=== PATIENT | female | born 1995 | race Two or more races ===

== ENCOUNTER 2024-02-11 13:41 | Observation (INO) | payer MEDICAID, SELFPAY ==
[2024-02-11 13:50] VITALS: BP 138/77; PULSE 92
[2024-02-11 13:59] VITALS: BP 138/77; PULSE 99; RESP 16; TEMP 36.7; BMI 30.5
[2024-02-11 14:06] VITALS: BP 132/73; PULSE 93
[2024-02-11 14:22] VITALS: BP 131/76; PULSE 96
[2024-02-11 14:37] VITALS: BP 123/68; PULSE 90
[2024-02-11 14:52] VITALS: BP 134/80; PULSE 87
== END 2024-02-11 15:15 | disposition home or self-care (01) ==
PROVIDERS: Admitting Provider Obstetrics & Gynecology; Visit Provider Obstetrics & Gynecology
DX: Z34.83 Encounter for supervision of other normal pregnancy, third trimester (principal); Z3A.38 38 weeks gestation of pregnancy
CPT/HCPCS: 59025; 59899

== ENCOUNTER 2024-02-15 10:07 | Outpatient (CLI) | payer MEDICAID, SELFPAY ==
[2024-02-15 10:14] VITALS: BP 140/82; PULSE 78; RESP 16; TEMP 36.9; O2SAT 98
[2024-02-15 10:24] VITALS: BP 137/80; PULSE 88
[2024-02-15 10:31] VITALS: TEMP 36.9; BMI 30.4
[2024-02-15 10:36] VITALS: BP 133/72; PULSE 90
[2024-02-15 10:45] VITALS: BP 130/72; PULSE 84
== END 2024-02-15 10:50 | disposition home or self-care (01) ==
LOC: S4S1 10:08 → S4SX 10:09
PROVIDERS: Referring Provider Obstetrics & Gynecology; Visit Provider Obstetrics & Gynecology
DX: Z34.83 Encounter for supervision of other normal pregnancy, third trimester (principal); Z36.89 Encounter for other specified antenatal screening; Z3A.38 38 weeks gestation of pregnancy
CPT/HCPCS: 59025

== ENCOUNTER 2024-02-17 13:58 | Outpatient (RCR) | payer MEDICAID, SELFPAY ==
--- NOTE | 2024-01-14 14:27 | XR_ITS ---
Examination: Biophysical profile, ultrasound Date and time of exam: January 14, 2024 at 1446 hours INDICATIONS: NST labor evaluation low amniotic fluid history Technique: Multiple transabdominal sonographic images of the pelvis abdomen obtained. Attention is directed to the breathing movement, gross body movement, amniotic fluid volume and tone. Findings: Amniotic fluid index 9.9 cm Total biophysical profile is 8 of 8. breathing movement is 2. Gross body movement is 2. tone is 2. Qualitative amniotic fluid volume is 2 Impression: Biophysical profile is 8 of 8.
[2024-01-14 15:20] VITALS: BP 129/73; PULSE 92; RESP 16; TEMP 37
--- NOTE | 2024-01-20 14:14 | XR_ITS ---
Examination: Biophysical profile, ultrasound Date and time of exam: January 20, 2024 1422 hours INDICATIONS: History low amniotic fluid Technique: Multiple transabdominal sonographic images of the pelvis abdomen obtained. Attention is directed to the breathing movement, gross body movement, amniotic fluid volume and tone. Findings: Amniotic fluid index 8.9 cm Total biophysical profile is 8 of 8. breathing movement is 2. Gross body movement is 2. tone is 2. Qualitative amniotic fluid volume is 2 Impression: Biophysical profile is 8 of 8.
[2024-01-20 14:52] VITALS: BP 124/75; PULSE 102; RESP 16; TEMP 37
--- NOTE | 2024-01-27 14:12 | XR_ITS ---
Examination: Biophysical profile, ultrasound Date and time of exam: January 27, 2024 1426 hours INDICATIONS: NST, labor evaluation, history low amniotic fluid index 8.9 cm on January 20, 2024 Technique: Multiple transabdominal sonographic images of the pelvis abdomen obtained. Attention is directed to the breathing movement, gross body movement, amniotic fluid volume and tone. Findings: Amniotic fluid index 13.4 cm Total biophysical profile is 8 of 8. breathing movement is 2. Gross body movement is 2. tone is 2. Qualitative amniotic fluid volume is 2 Impression: Biophysical profile is 8 of 8.
[2024-01-27 14:59] VITALS: BP 122/80; PULSE 89; RESP 16; TEMP 36.6
--- NOTE | 2024-02-03 14:59 | XR_ITS ---
Examination: Biophysical profile, ultrasound Date and time of exam: February 03, 2024 1433 hours INDICATIONS: NST, labor evaluation, history low amniotic fluid 5:00 AM Technique: Multiple transabdominal sonographic images of the pelvis abdomen obtained. Attention is directed to the breathing movement, gross body movement, amniotic fluid volume and tone. Findings: Amniotic fluid index 14.1 cm Total biophysical profile is 8 of 8. breathing movement is 2. Gross body movement is 2. tone is 2. Qualitative amniotic fluid volume is 2 Impression: Biophysical profile is 8 of 8.
[2024-02-03 15:00] VITALS: BP 127/82; PULSE 72; RESP 16; TEMP 36.6
[2024-02-10] VITALS (11 sets, daily range): BP systolic 118–145; BP diastolic 63–85; PULSE 101; RESP 18; TEMP 36.6
--- NOTE | 2024-02-10 14:08 | XR_ITS ---
Examination: Biophysical profile, ultrasound Date and time of exam: February 10, 2024 1416 hours INDICATIONS: Clear vaginal discharge beginning several days ago, history low KELSEA Technique: Multiple transabdominal sonographic images of the pelvis abdomen obtained. Attention is directed to the breathing movement, gross body movement, amniotic fluid volume and tone. Findings: Amniotic fluid index 12.8 cm Total biophysical profile is 8 of 8. breathing movement is 2. Gross body movement is 2. tone is 2. Qualitative amniotic fluid volume is 2 Impression: Biophysical profile is 8 of 8.
[2024-02-10 16:13] LABS: Collection Type, Urine Clean Catch
[2024-02-10 16:19] LABS: Basophils % (Auto) 0 % (0-2.5); Eosinophils % (Auto) 0 % (0-10); Hematocrit 35.2 % (36.0-46.0); Hemoglobin 11.7 g/dL (12.0-16.0); Immature Granulocytes % (Auto) 0 % (0-0); Immature Granulocytes Auto 0.03 Thou/mm3 (0.00-0.00); Lymphocytes # (Auto) 1.3 Thou/mm3 (1.0-4.8); Lymphocytes % (Auto) 18 % (10-50); Mean Corpuscular HGB Conc 33.2 g/dl (31.0-37.0); Mean Corpuscular Hemoglobin 30.2 pg (25.0-35.0); Mean Corpuscular Volume 91 fL (80-100); Monocytes # (Auto) 0.5 Thou/mm3 (0.0-0.8); Monocytes % (Auto) 8 % (0-12); Neutrophils # (Auto) 5.1 Thou/mm3 (1.8-7.7); Neutrophils % (Auto) 73 % (37-80); Nucleated Red Blood Cell % 0 /100 WBC (0); Platelet Count 199 Thou/mm3 (140-440); RDW Standard Deviation 46.4 fL (36.4-46.3); Red Blood Count 3.88 Miln/mm3 (4.00-5.20); White Blood Count 6.9 Thou/mm3 (3.6-11.0)
[2024-02-10 16:35] LABS: INR 0.9 (0.9-1.3); Partial Thromboplastin Time 25.3 Seconds (22.0-36.0); Prothrombin Time 10.3 Seconds (9.0-12.2)
[2024-02-10 16:38] LABS: Bilirubin,Urine Negative (Negative); Blood,Urine Negative (Negative); Clarity,Urine Clear (Clear/Hazy); Color,Urine Lt-Yellow (Lt Yel-Yel); Glucose, Urine Negative (Negative); Ketones,Urine Negative (Negative); Leukocyte Esterase,Urine Negative (Negative); Nitrite,Urine Negative (Negative); PH,Urine 6.5 (5.0-7.0); Protein,Urine Trace (Neg - Trace); RBC,Urine < 1 /hpf (0-3); Specific Gravity,Urine 1.017 (1.001-1.035); Squamous Epithelial Cell,Urine 2 /hpf (0-5); Urobilinogen,Urine Negative mg/dL (0.0-1.0); WBC,Urine < 1 /hpf (0-5)
[2024-02-10 16:43] LABS: Alanine Aminotransferase 17 U/L (10-49); Albumin, Serum 4.3 gm/dL (3.5-5.0); Albumin/Globulin Ratio 1.5 (1.2-2.2); Alkaline Phosphatase 202 U/L (46-116); Anion Gap 10 (7-16); Aspartate Amino Transferase 23 U/L (0-34); BUN/Creatinine Ratio 15 Ratio (12-20); Bilirubin,Total 0.4 mg/dL (0.3-1.2); Blood Urea Nitrogen 9 mg/dL (9-23); Calcium 9.4 mg/dL (8.3-10.6); Calcium (Corrected) 9.4 mg/dL (8.5-10.1); Carbon Dioxide 21.4 mMol/L (20.0-31.0); Chloride 105 mMol/L (98-107); Creatinine (Component) 0.6 mg/dL (0.6-1.3); Globulin 2.8 gm/dL (2.3-3.5); Glucose 81 mg/dL (74-106); LDH (Lactate Dehydrogenase) 203 U/L (120-246); Osmolality,Calculated 269 (275-295); Potassium 3.8 mMol/L (3.4-5.1); Sodium 136 mMol/L (136-145); Total Protein 7.1 gm/dL (5.7-8.2); Uric Acid 3.8 mg/dL (3.1-7.8); eGFR > 60 See Note
[2024-02-10 16:57] LABS: Fibrinogen 608 mg/dL (175-375)
--- NOTE | 2024-02-17 14:05 | XR_ITS ---
Examination: Biophysical profile, ultrasound Date and time of exam: February 17, 2024 1414 hours INDICATIONS: Yellow vaginal discharge today Technique: Multiple transabdominal sonographic images of the pelvis abdomen obtained. Attention is directed to the breathing movement, gross body movement, amniotic fluid volume and tone. Findings: Amniotic fluid index 8.0 cm Total biophysical profile is 8 of 8. breathing movement is 2. Gross body movement is 2. tone is 2. Qualitative amniotic fluid volume is 2 Impression: Biophysical profile is 8 of 8.
[2024-02-17 14:47] VITALS: BP 155/82; PULSE 86; RESP 16; TEMP 36.7
== END 2024-02-17 23:59 | disposition home or self-care (01) ==
LOC: S4S1 13:58
PROVIDERS: PCP Family Medicine; Referring Provider Obstetrics & Gynecology; Visit Provider Obstetrics & Gynecology
DX: O34.211 Maternal care for low transverse scar from previous cesarean delivery (principal); N85.8 Other specified noninflammatory disorders of uterus; Z3A.38 38 weeks gestation of pregnancy
CPT/HCPCS: 36415; 59025; 76819; 80053; 81001; 83615; 84550; 85025; 85384; 85610; 85730

== ENCOUNTER 2024-02-19 09:41 | Inpatient (IN) | payer MEDICAID, SELFPAY ==
[2024-02-19] VITALS (29 sets, daily range): BP systolic 114–145; BP diastolic 65–89; PULSE 76–105; RESP 14–20; TEMP 36.6–37.1; O2SAT 96–100; BMI 29.9
[2024-02-19 10:50] LABS: Collection Type, Urine Clean Catch
[2024-02-19 10:55] LABS: Basophils % (Auto) 0 % (0-2.5); Eosinophils % (Auto) 0 % (0-10); Hematocrit 36.3 % (36.0-46.0); Hemoglobin 12.4 g/dL (12.0-16.0); Immature Granulocytes % (Auto) 1 % (0-0); Immature Granulocytes Auto 0.04 Thou/mm3 (0.00-0.00); Lymphocytes # (Auto) 1.2 Thou/mm3 (1.0-4.8); Lymphocytes % (Auto) 17 % (10-50); Mean Corpuscular HGB Conc 34.2 g/dl (31.0-37.0); Mean Corpuscular Hemoglobin 30.8 pg (25.0-35.0); Mean Corpuscular Volume 90 fL (80-100); Monocytes # (Auto) 0.4 Thou/mm3 (0.0-0.8); Monocytes % (Auto) 6 % (0-12); Neutrophils % (Auto) 75 % (37-80); Nucleated Red Blood Cell % 0 /100 WBC (0); Platelet Count 120 Thou/mm3 (140-440); RDW Standard Deviation 45.1 fL (36.4-46.3); Red Blood Count 4.03 Miln/mm3 (4.00-5.20); White Blood Count 6.7 Thou/mm3 (3.6-11.0)
[2024-02-19 11:02] LABS: Creatinine,Random Urine 51 mg/dL (30-125); Protein Total, Random Urine 76 mg/dL (1-14)
[2024-02-19 11:04] LABS: Bilirubin,Urine Negative (Negative); Blood,Urine 2+ (Negative); Clarity,Urine Clear (Clear/Hazy); Color,Urine Lt-Yellow (Lt Yel-Yel); Glucose, Urine Negative (Negative); Ketones,Urine Negative (Negative); Leukocyte Esterase,Urine Negative (Negative); Nitrite,Urine Negative (Negative); PH,Urine 6.5 (5.0-7.0); Protein,Urine 1+ (Neg - Trace); RBC,Urine 1 /hpf (0-3); Specific Gravity,Urine 1.013 (1.001-1.035); Squamous Epithelial Cell,Urine 10 /hpf (0-5); Urobilinogen,Urine Negative mg/dL (0.0-1.0); WBC,Urine 2 /hpf (0-5)
[2024-02-19 11:13] LABS: Alanine Aminotransferase 18 U/L (10-49); Albumin, Serum 4.3 gm/dL (3.5-5.0); Albumin/Globulin Ratio 1.7 (1.2-2.2); Alkaline Phosphatase 209 U/L (46-116); Anion Gap 10 (7-16); Aspartate Amino Transferase 22 U/L (0-34); BUN/Creatinine Ratio 20 Ratio (12-20); Bilirubin,Total 0.4 mg/dL (0.3-1.2); Blood Urea Nitrogen 12 mg/dL (9-23); Calcium 9.4 mg/dL (8.3-10.6); Calcium (Corrected) 9.4 mg/dL (8.5-10.1); Carbon Dioxide 18.8 mMol/L (20.0-31.0); Chloride 108 mMol/L (98-107); Creatinine (Component) 0.6 mg/dL (0.6-1.3); Estimated Creatinine Clearance 144.3 mL/min (>60); Globulin 2.6 gm/dL (2.3-3.5); Glucose 83 mg/dL (74-106); Osmolality,Calculated 272 (275-295); Potassium 3.7 mMol/L (3.4-5.1); Sodium 137 mMol/L (136-145); Total Protein 6.9 gm/dL (5.7-8.2); eGFR > 60 See Note
[2024-02-19 11:30] LABS: Syphilis Nonreactive (Nonreactive)
[2024-02-19 11:53] LABS: Fibrinogen 574 mg/dL (175-375); INR 0.9 (0.9-1.3); Partial Thromboplastin Time 25.5 Seconds (22.0-36.0)
[2024-02-19] MEDS: ceFAZolin/D5W 2 GM IV 2 GM/100 ML BAG IV (12:28)
[2024-02-19] MEDS: FAMOTIDINE INJ 10 MG/ML VIAL 2 ML 20 MG IV (12:29)
[2024-02-19] MEDS: METOCLOPRAMIDE INJ 5 MG/ML VIAL 2 ML 10 MG IVP (12:29)
--- NOTE | 2024-02-19 12:44 | PD.LDHP ---
Documentation for date of: 02/19/24 OB Labor/Induct. HPI History of Present Illness : 2 Term pregnancies: 0 pregnancies: 1 Living children: 1 History of Abortions: Spontaneous and Elective: 0 History of sections: No History of : No JAMILA: 02/25/24 Gestational Age (weeks): 39 Gestational Age (days): 1 History of present illness: 28-year-old -1-0-1 at 39 weeks 1 day presents for scheduled repeat low-transverse section. Patient has no contractions, leakage of fluid or vaginal bleeding and reports good movements History of Present Adequate Care: Yes Review of Systems Review of Systems Systems Reviewed: All systems reviewed, normal except as documented Constitutional Constitutional: Reports system reviewed and no additional complaints, except as documented, Denies body ache(s), Denies chills and Denies fever(s) Eyes Eyes: Reports system reviewed and no additional complaints, except as documented and Denies change in vision ENT Ears, Nose, Mouth, and Throat: Reports system reviewed and no additional complaints, except as documented, Denies disequilibrium, Denies dizziness, Reports epistaxis, Denies sore throat and Denies vertigo Cardiovascular Cardiovascular: Reports system reviewed and no additional complaints, except as documented, Denies chest pain and Denies dyspnea Respiratory Respiratory: Reports system reviewed and no additional complaints, except as documented, Denies chest congestion, Denies cough and Denies dyspnea Gastrointestinal Gastrointestinal: Reports system reviewed and no additional complaints, except as documented, Denies abdominal pain, Denies nausea and Denies vomiting Musculoskeletal Musculoskeletal: Reports system reviewed and no additional complaints, except as documented, Denies abnormal gait and Denies arthralgias Integumentary/Breasts Skin/Breast: Reports system reviewed and no additional complaints, except as documented, Denies erythema, Denies rash and Denies wounds Neurologic Neurologic: Reports system reviewed and no additional complaints, except as documented, Denies abnormal gait, Denies disequilibrium, Denies dizziness and Denies vertigo Past Medical History Surgical History SURGICAL: Negative Section Meds Home Medications and Allergies Home Medications ?Medication ?Instructions ?Recorded ?Confirmed ?Type Vitamin * 1 tab PO QDAY #0 tabs 02/07/17 02/19/24 History Allergies Allergy/AdvReac Type Severity Reaction Status Date / Time No Known Allergies Allergy Verified 02/19/24 11:07 OB Exam Physical Exam Vital signs: Temp Pulse Resp BP Pulse Ox 98.6 F 85 18 140/70 H 98 02/19/24 10:01 02/19/24 11:56 02/19/24 10:01 02/19/24 11:56 02/19/24 12:05 Constitutional Constitutional: no acute distress Routine HEENT Exam Head: Present normocephalic and atraumatic Eye: Present EOMI and PERRL ENT: Present mucous membranes moist Routine Neck Exam Neck: Present supple and trachea midline Routine Cardiovascular Exam Cardiovascular: Present RRR Routine Abdominal Exam Abdominal: Present soft and normoactive bowel sounds Detailed Labor and Delivery Exam Baseline heart rate: 145 monitor accelerations: 15x15 monitor decelerations: None Routine Extremities Exam Extremities: Present full ROM Routine Skin Exam Skin: Present intact, dry and warm Routine Neurological Exam Neurological: Present alert, oriented X3 and CN II-XII intact Routine Psychiatric Exam Psychiatric: Present normal affect and normal thought process OB Results Labs 02/19/24 10:15 02/19/24 10:43 Labs: Short CBC 02/19/24 Range/Units 10:15 WBC 6.7 (3.6-11.0) Thou/mm3 Hgb 12.4 (12.0-16.0) g/dL Hct 36.3 (36.0-46.0) % Plt Count 120 L D (140-440) Thou/mm3 BMP 02/19/24 10:43 Sodium 137 Potassium 3.7 Chloride 108 H Carbon Dioxide 18.8 L BUN 12 Creatinine 0.6 Glucose 83 Calcium 9.4 Liver Function 02/19/24 Range/Units 10:43 Total Bilirubin 0.4 (0.3-1.2) mg/dL AST 22 (0-34) U/L ALT 18 (10-49) U/L Alkaline Phosphatase 209 H (46-116) U/L Albumin 4.3 (3.5-5.0) gm/dL Urine 02/19/24 Range/Units 10:00 Urine Color Lt-Yellow (Lt Yel-Yel) Urine Clarity Clear (Clear/Hazy) Urine pH 6.5 (5.0-7.0) Ur Specific [place] [address] 1.013 (1.001-1.035) Urine Protein 1+ A (Neg - Trace) Urine Glucose (UA) Negative (Negative) OB Assessment & Plan Assessment and Plan (1) Previous delivery affecting : Status: Acute Assessment and plan: Admit to inpatient status for repeat low transverse IV access, CBC, type and screen, LR at 125, RPR, COVID-19 test GBS negative Ancef 2 g prior to surgery start Coffey catheter to drainage SCDs for DVT prophylaxis Anesthesia to preop for spinal anesthesia Scheduled for surgery.
--- NOTE | 2024-02-19 12:49 | ESOP_ITS ---
Operative Note - LITERACY EDUCATION PROFESSOR Procedure Date of procedure: 02/19/24 Procedure Performed: Patient low-transverse section Indication: G2, P1 at 39 weeks and 1 day with previous Anesthesia type: Spinal Procedure description: Informed consent was obtained and the patient was taken to the operating room. Identity was confirmed by double identifiers and she was placed on the operating table. Spinal anesthesia was administered and she was positioned in the supine position. The abdomen and perineum were prepped in the usual sterile fashion and a Coffey catheter was placed to continuous drainage. Sterile drapes were applied. The incision site was tested for adequacy of anesthesia. A Pfannenstiel skin incision was made with a scalpel and carried to the subcutaneous fat up to the rectus fascia. Significant amount of scar tissue was noted in the subcutaneous layers which were divided with a combination of sharp dissection and the Bovie the rectus fascia was incised on either side of the midline and the incisions were extended bilaterally. The fascia was gently dissected off the ventral surface of the rectus muscle both superiorly and inferiorly. The rectus bellies were gently in the midline and the peritoneum was identified and entered bluntly using the surgeon's finger. The peritoneal opening was now stretched to create an adequate opening for access to the uterus. Intraperitoneal adhesions were noted, there was a band that appeared to arise from the uterus and was connected to anterior abdominal wall and the greater omentum, the appearance was consistent with myometrial tissue which could indicate possible pedunculated leiomyoma that had fused with the abdominal wall. All these adhesions were carefully taken down taking out most care to protect underlying intraperitoneal structures. Once the opening was adequate, Saleem O-ring retractor was placed for adequate visualization. The anterior surface of the uterus was palpated. The bladder reflection was identified and a Erika Bain low transverse uterine incision was made in the lower uterine segment taking care to avoid the bladder. Uterine entry was accomplished bluntly and the opening was stretched to create adequate room. The amniotic membranes were now ruptured and clear amniotic fluid was released. The fetus was noted to be in the vertex position. The head was gently elevated out of the maternal pelvis and single loop of nuchal cord was found around the neck. The cord was released and the rest of the shoulders and body were delivered by gentle fundal pressure. Umbilical cord was doubly clamped, divided and the was handed over to the waiting team. Cord gas samples were obtained. The placenta was delivered by gentle traction on the umbilical cord. The interior of the uterus was now thoroughly cleaned of all blood and debris and membranes. The hysterotomy angles were grasped by a pair of Allis clamps and the hysterotomy was closed using 1 Monocryl suture in 2 layers. The first layer was used to approximate the muscle in a running locked fashion, the second layer was used to approximate the thickness of the myometrium and uterine serosa in an imbricated manner. Once the repair was completed the hysterotomy was inspected and noted to be adequately hemostatic. At this time brisk hemorrhage was noted from the superior and the anterior aspect of the uterine body and fundus from sites of scar tissue. All bleeding sites were cauterized and [id number] stitches was applied until hemostasis was noted to be satisfactory. The hysterotomy was once again inspected and hemostasis was noted to be satisfactory. The Saleem retractor was now removed. The peritoneal edges were re approximated. The rectus muscles were re approximated. The rectus fascia was now repaired using 0 Vicryl suture in a running fashion. The subcutaneous layer was now copiously irrigated using warm normal saline. All bleeding points were cauterized using the Bovie. The subcutaneous fat was closed using 3-0 Vicryl. The skin was closed using 4-0 Monocryl in a subcuticular fashion. The skin was cleaned and a sterile dressing was applied. The patient was now undraped, the abdomen and back were thoroughly cleaned and she was not transferred to the recovery room in a stable and awake condition. The patient tolerated the entire procedure well. No complications were encountered. All instrument, sponge and lap counts were correct x2. Estimated blood loss (ml): 750 Complications: none Surgical staff Operation Date: 02/19/24 12:15 Case Staff BATTALION CHIEF: Hiren Pollard RN First Assistant: Sherri Mcduffie Diagnosis Discharge Diagnosis (1) Previous delivery affecting : Status: Acute Problem List Completed Was Problem List Reviewed/Reconciled?: Yes
[2024-02-19] MEDS: OXYTOCIN in NS 20 units 20 UNIT/1,000 ML BAG 125 UNIT IV ×2 (14:05→22:55)
--- NOTE | 2024-02-19 16:09 | PC.NURSE ---
Care endorsed from Sera ARELLANO, mom comfortable in bed, no signs of distress, no discomfort, Dressing to lower abd CDI, no vaginal bleeding, assisted patient into a brestfeeding position
[2024-02-19] MEDS: HYDROcodone/APAP 5/325 TABLET 1 TAB PO (17:43)
[2024-02-19] MEDS: IBUPROFEN TAB 400 MG TABLET 800 MG PO (20:27)
[2024-02-19] MEDS: ACETAMINOPHEN 325 MG TABLET 650 MG PO (22:55)
[2024-02-20] VITALS (8 sets, daily range): BP systolic 120–148; BP diastolic 80–92; PULSE 83–109; RESP 16–20; TEMP 36.6–37.2; O2SAT 96–100
[2024-02-20] MEDS: HYDROcodone/APAP 5/325 TABLET 1 TAB PO (02:15)
[2024-02-20] MEDS: IBUPROFEN TAB 400 MG TABLET 800 MG PO ×3 (05:55→21:52)
[2024-02-20 06:39] LABS: Basophils % (Auto) 0 % (0-2.5); Eosinophils % (Auto) 0 % (0-10); Hematocrit 28.9 % (36.0-46.0); Hemoglobin 9.6 g/dL (12.0-16.0); Immature Granulocytes % (Auto) 1 % (0-0); Immature Granulocytes Auto 0.04 Thou/mm3 (0.00-0.00); Lymphocytes # (Auto) 1.1 Thou/mm3 (1.0-4.8); Lymphocytes % (Auto) 14 % (10-50); Mean Corpuscular HGB Conc 33.2 g/dl (31.0-37.0); Mean Corpuscular Hemoglobin 30.5 pg (25.0-35.0); Mean Corpuscular Volume 92 fL (80-100); Monocytes # (Auto) 0.5 Thou/mm3 (0.0-0.8); Monocytes % (Auto) 7 % (0-12); Neutrophils # (Auto) 6.1 Thou/mm3 (1.8-7.7); Neutrophils % (Auto) 79 % (37-80); Nucleated Red Blood Cell % 0 /100 WBC (0); Platelet Count 141 Thou/mm3 (140-440); RDW Standard Deviation 47.4 fL (36.4-46.3); Red Blood Count 3.15 Miln/mm3 (4.00-5.20); White Blood Count 7.7 Thou/mm3 (3.6-11.0)
[2024-02-20] MEDS: DOCUSATE SOD 100 MG CAPSULE PO (08:26)
--- NOTE | 2024-02-20 09:35 | PD.LDPPPRG ---
Subjective Subjective Interval history: Delivery type: Patient doing well this morning. No acute complaints. Ambulating, tolerating p.o. and voiding without difficulty. HTN/Pre-Eclampsia screen: No chest pain, shortness of breath, headache, visual changes, epigastric or right upper quadrant pain. Breast-feeding, lochia diminishing. Bowel: Flatus+/ BM+ Exam Vital Signs Temp Pulse Resp BP Pulse Ox O2 Del Method 98.9 F 98 17 143/83 H 100 Room Air 02/20/24 04:20 02/20/24 04:20 02/20/24 04:20 02/20/24 04:20 02/20/24 04:20 02/20/24 04:20 Constitutional Constitutional: no acute distress Routine HEENT Exam Head: Present normocephalic and atraumatic Eye: Present EOMI and PERRL ENT: Present mucous membranes moist Routine Neck Exam Neck: Present supple and trachea midline Routine Respiratory Exam Respiratory: Present chest non-tender, lungs clear, normal breath sounds and no resp distress Routine Cardiovascular Exam Cardiovascular: Present RRR Routine Abdominal Exam Abdominal: Present soft and normoactive bowel sounds Routine Extremities Exam Extremities: Present full ROM Routine Skin Exam Skin: Present intact, dry and warm Routine Neurological Exam Neurological: Present alert, oriented X3 and CN II-XII intact Routine Psychiatric Exam Psychiatric: Present normal affect and normal thought process Objective Labs 02/20/24 05:39 02/19/24 10:43 Labs: Laboratory Results - last 24 hr 02/19/24 02/19/24 02/19/24 10:00 10:15 10:43 WBC 6.7 RBC 4.03 Hgb 12.4 Hct 36.3 MCV 90 MCH 30.8 MCHC 34.2 RDW Std Deviation 45.1 Plt Count 120 L D Neut % (Auto) 75 Lymph % (Auto) 17 [place] % (Auto) 6 Eos % (Auto) 0 Baso % (Auto) 0 Neut # (Auto) 5.0 Lymph # (Auto) 1.2 [place] # (Auto) 0.4 Eos # (Auto) 0.0 Baso # (Auto) 0.0 Immature Gran # (Auto) 0.04 H Absolute Nucleated RBC 0.00 Immature Gran % 1 H Nucleated RBC % 0 PT 10.0 INR 0.9 APTT 25.5 Fibrinogen 574 H Sodium 137 Potassium 3.7 Chloride 108 H Carbon Dioxide 18.8 L Anion Gap 10 BUN 12 Creatinine 0.6 Estim Creat Clear Calc 144.3 eGFR > 60 BUN/Creatinine Ratio 20 Glucose 83 Calculated Osmolality 272 L Uric Acid 4.0 Calcium 9.4 Corrected Calcium 9.4 Total Bilirubin 0.4 AST 22 ALT 18 Alkaline Phosphatase 209 H Total Protein 6.9 Albumin 4.3 Globulin 2.6 Albumin/Globulin Ratio 1.7 Ur Collection Type Clean Catch Urine Color Lt-Yellow Urine Clarity Clear Urine pH 6.5 Ur Specific [place] 1.013 Urine Protein 1+ A Urine Glucose (UA) Negative Urine Ketones Negative Urine Blood 2+ A Urine Nitrite Negative Urine Bilirubin Negative Urine Urobilinogen (Auto) Negative Ur Leukocyte Esterase Negative Urine RBC 1 Urine WBC 2 Ur Squamous Epith Cells 10 H Urine Bacteria None Ur Random Creatinine 51 U Random Total Protein 76 H Syphilis Serology Nonreactive Blood Type Antibody Screen Blood Bank Wristband ID 02/19/24 02/20/24 12:17 05:39 WBC 7.7 RBC 3.15 L Hgb 9.6 L D Hct 28.9 L MCV 92 MCH 30.5 MCHC 33.2 RDW Std Deviation 47.4 H Plt Count 141 Neut % (Auto) 79 Lymph % (Auto) 14 [place] % (Auto) 7 Eos % (Auto) 0 Baso % (Auto) 0 Neut # (Auto) 6.1 Lymph # (Auto) 1.1 [place] # (Auto) 0.5 Eos # (Auto) 0.0 Baso # (Auto) 0.0 Immature Gran # (Auto) 0.04 H Absolute Nucleated RBC 0.00 Immature Gran % 1 H Nucleated RBC % 0 PT INR APTT Fibrinogen Sodium Potassium Chloride Carbon Dioxide Anion Gap BUN Creatinine Estim Creat Clear Calc eGFR BUN/Creatinine Ratio Glucose Calculated Osmolality Uric Acid Calcium Corrected Calcium Total Bilirubin AST ALT Alkaline Phosphatase Total Protein Albumin Globulin Albumin/Globulin Ratio Ur Collection Type Urine Color Urine Clarity Urine pH Ur Specific [place] Urine Protein Urine Glucose (UA) Urine Ketones Urine Blood Urine Nitrite Urine Bilirubin Urine Urobilinogen (Auto) Ur Leukocyte Esterase Urine RBC Urine WBC Ur Squamous Epith Cells Urine Bacteria Ur Random Creatinine U Random Total Protein Syphilis Serology Blood Type O Positive Antibody Screen NEGATIVE Blood Bank Wristband ID Yes Assessment & Plan Problem List (1) Previous delivery affecting : Status: Acute (2) delivery delivered: Status: Acute Assessment and plan: 1. Continue routine /post-op care 2. Labs reviewed, cbc appropriate 3. Remove dressing/Coffey 4. Encourage to ambulate, shower 5. Encourage PO intake, breast feeding Time Spent With Patient Time: Total time spent is greater than 50% in coordination of care (as documented) at patient's floor/unit and/or counseling patient:
--- NOTE | 2024-02-20 09:36 | PD.LDDELS ---
Data (Ward) Data Hx Section: No : 2 Para: 0 Term: 0 : 1 : 0 Delivery Data (Ward) Labor Data ROM Date: 02/19/24 ROM Time: 13:10 Rupture Type: AROM Amniotic Fluid: Thin Meconium Delivery Data Labor Onset Stage 1 Date: 02/19/24 Labor Onset Stage 1 Time: 13:10 Labor Onset Stage 2 Date: 02/19/24 Labor Onset Stage 2 Time: 13:10 Delivery Date: 02/19/24 Delivery Time: 13:10 Placenta Delivery Date: 02/19/24 Placenta Delivery Time: 13:10 Delivered by: Edison Madden Delivery nurse: Sera Lehman Other staff at delivery: Instant Powder Supervisor Other staff at delivery: French Cord Binder Other staff at delivery: RT Other staff at delivery: Scrub Other staff at delivery: Arlette Lyons Other staff at delivery: Sherri Gerardo Other staff at delivery: joanna Other staff at delivery: madrangela Delivery Method Delivery: Delivery Type: Repeat Anesthesia Type Primary Anesthesia: Spinal Umbilical Cord Nuchal Cord: x1 Data ([place]) [place] Data Gender: Male Infant Weight Grams: 3570 1 Minute Total: 9 5 Minute Total: 9
[2024-02-20] MEDS: Milk Of Magnesia Susp 30 ML UDC PO (15:26)
[2024-02-20] MEDS: SIMETHICONE 80 MG CHEW PO ×2 (15:26→21:53)
[2024-02-20] MEDS: ACETAMINOPHEN 325 MG TABLET 650 MG PO (15:32)
[2024-02-21] MEDS: SIMETHICONE 80 MG CHEW PO (03:57)
[2024-02-21] MEDS: ACETAMINOPHEN 325 MG TABLET 650 MG PO (03:57)
[2024-02-21 04:55] VITALS: BP 152/96; PULSE 104; RESP 20; TEMP 36.9; O2SAT 98
[2024-02-21] MEDS: IBUPROFEN TAB 400 MG TABLET 800 MG PO (07:56)
[2024-02-21] MEDS: DOCUSATE SOD 100 MG CAPSULE PO (07:56)
[2024-02-21 08:00] VITALS: BP 142/87; PULSE 99; RESP 16; TEMP 37; O2SAT 98
--- NOTE | 2024-02-21 09:02 | PD.LDPPPRG ---
Subjective Subjective Interval history: Delivery type: Patient doing well this morning. No acute complaints. Ambulating, tolerating p.o. and voiding without difficulty. HTN/Pre-Eclampsia screen: No chest pain, shortness of breath, headache, visual changes, epigastric or right upper quadrant pain. Breast-feeding, lochia diminishing. Bowel: Flatus+/ BM+ Exam Vital Signs Temp Pulse Resp BP Pulse Ox O2 Del Method 98.4 F 104 H 20 152/96 H 98 Room Air 02/21/24 04:55 02/21/24 04:55 02/21/24 04:55 02/21/24 04:55 02/21/24 04:55 02/21/24 04:55 Constitutional Constitutional: no acute distress Routine HEENT Exam Head: Present normocephalic and atraumatic Eye: Present EOMI and PERRL ENT: Present mucous membranes moist Routine Neck Exam Neck: Present supple and trachea midline Routine Respiratory Exam Respiratory: Present chest non-tender, lungs clear, normal breath sounds and no resp distress Routine Cardiovascular Exam Cardiovascular: Present RRR Routine Abdominal Exam Abdominal: Present soft and normoactive bowel sounds Routine Extremities Exam Extremities: Present full ROM Routine Skin Exam Skin: Present intact, dry and warm Routine Neurological Exam Neurological: Present alert, oriented X3 and CN II-XII intact Routine Psychiatric Exam Psychiatric: Present normal affect and normal thought process Objective Labs 02/20/24 05:39 02/19/24 10:43 Assessment & Plan Problem List (1) Previous delivery affecting : Status: Acute Assessment and plan: PPD/POD#2 1. Continue routine care 2. Transition to PO meds. 3. Encourage to ambulate/ breast-feed 4. Anticipate discharge home today. Time Spent With Patient Time: Total time spent is greater than 50% in coordination of care (as documented) at patient's floor/unit and/or counseling patient:
--- NOTE | 2024-02-21 09:06 | PD.LDDS ---
DS: Providers Provider Date of admission: 02/19/24 09:41 Primary care physician: Physician No Primary/Family Admitting Provider: Edison Madden MD Attending Provider on Admission: Edison Madden MD Consults: 02/19/24 13:57 Referral Routine Comment: Attending Provider on DC: Edison Madden MD Discharging Provider: Edison Madden MD DS: Diagnosis Problem List Completed Was Problem List Reviewed/Reconciled?: Yes Summary/Hosp Course Brief History: 28-year-old -1-0-1 at 39 weeks 1 day presents for scheduled repeat low-transverse section. Patient has no contractions, leakage of fluid or vaginal bleeding and reports good movements Peripartum Data Procedures: Procedures Operation Date: 02/19/24 12:15 Actual Procedure Side Surgeon p in OB Edison Madden MD Time Spent with Patient Time attestation: Total time spent providing and/or coordinating discharge services: Exam Vital Signs Temp Pulse Resp BP Pulse Ox O2 Del Method 98.4 F 104 H 20 152/96 H 98 Room Air 02/21/24 04:55 02/21/24 04:55 02/21/24 04:55 02/21/24 04:55 02/21/24 04:55 02/21/24 04:55 Discharge Plan Plan Patient Disposition: HOME (Self Care) Patient condition on transfer: Stable Prescriptions/Referrals Prescriptions/Med Rec: New hydrocodone-acetaminophen 5-325 mg Tablet 1 tab PO Q6H MDD 4 PRN (Reason: Patient rated pain 7 to 8) 5 Days Qty: 20 0RF docusate sodium 100 mg Capsule 100 mg PO QDAY 30 Days Qty: 30 0RF ibuprofen 400 mg Tablet 800 mg PO Q8HR PRN (Reason: Pain Scale 4-6 (Moderate) 10 Days Qty: 40 0RF Continued Vitamin * 1 EACH tablet 1 tab PO QDAY MDD one daily Qty: 0 Referrals: No Primary/Family,Physician [Primary Care Provider] - Patient/Caregiver Discharge Instructions Education Materials: C Section Dc Print Language: Grenadian Stand Alone Forms: Rose Award Info., Patient Portal Info Letter Planned Discharge Date 02/21/24
[2024-02-21 10:27] VITALS: BP 134/80; PULSE 99
[2024-02-21] MEDS: NIFEdipine 10 MG CAPSULE PO (10:27)
[2024-02-21 11:26] VITALS: BP 124/71; PULSE 122; RESP 17; TEMP 36.8; O2SAT 97
== END 2024-02-21 15:05 | disposition home or self-care (01) | DRG 540 ==
LOC: S4SX 09:42 → S4NX 12:52
PROVIDERS: Admitting Provider Obstetrics & Gynecology; Visit Provider Obstetrics & Gynecology
PROC: 10D00Z1 Extraction of Products of Conception, Low, Open Approach (ICD-10-PCS; CPT 59514; principal; 2024-02-19 12:00)
DX: O34.211 Maternal care for low transverse scar from previous cesarean delivery (principal); O69.81X0 Labor and delivery complicated by cord around neck, without compression, not applicable or unspecified; O77.0 Labor and delivery complicated by meconium in amniotic fluid; Z37.0 Single live birth; Z3A.39 39 weeks gestation of pregnancy
CPT/HCPCS: 36415; 59409; 80053; 81001; 82570; 84156; 84550; 85025; 85384; 85610; 85730; 86780; 86850; 86900; 86901; 94762; A4649; J0689; J2250; J2274; J2371; J2590; J2765; J3010; J3490; A9270; J0690; J2270